=== PATIENT | female | born 1995 | race Two or more races ===

== ENCOUNTER 2023-02-28 22:13 | Emergency (ER) | payer OTHER ==
[~2023-02-28] VITALS: Ht 152.4 cm; Wt 68.0 kg
[2023-02-28 23:25] LABS: HEMATOCRIT 40.4 % (36.0-45.00); HEMOGLOBIN 13.3 g/dL (12.0-15.00); MEAN CELL VOLUME 83.6 fL (80.00-100.00); MEAN CORPUSCULAR HEMOGLOBIN 27.4 pg (27.00-32.0); MEAN CORPUSCULAR HGB CONC 32.8 g/dl (32.0-36.0); PLATELET COUNT 311 K/uL (150-450); RED BLOOD COUNT 4.84 M/uL (4.00-6.00); RED CELL DISTRIBUTION WIDTH 13.4 % (11.5-14.5)
== END 2023-03-01 00:07 | disposition home or self-care (01) ==
LOC: ER 22:14
PROVIDERS: General Practice
DX: T78.40XA Allergy, unspecified, initial encounter (principal); X58.XXXA Exposure to other specified factors, initial encounter; Y92.89 Other specified places as the place of occurrence of the external cause